=== PATIENT | male | born 2000 | race Caucasian/White ===

== ENCOUNTER 2019-05-10 20:45 | Observation (INO) | payer MEDICAID ==
[2019-05-10] MEDS ORDERED: cefTRIAXone 1 GM in Premix Bag 1 BAG IV ONE (21:34)
[2019-05-10] MEDS ORDERED: Sodium Chloride 0.9% 1,000 ML IV ONE (21:34)
[2019-05-10] MEDS ORDERED: Ondansetron 4 MG/2 ML SDV IVPUSH ONE (21:34)
[2019-05-10 23:00] LABS: BLOOD UREA NITROGEN,BUN 8 mg/dL (7.0-18.0); CARBON DIOXIDE,CO2 24.7 mmol/L (21.0-32.0); CHLORIDE,CL 98 mmol/L (98-107); GLUCOSE RANDOM 143 mg/dL (74-106); POTASSIUM,K 3.6 mmol/L (3.5-5.1); SODIUM,NA 137 mmol/L (136-148)
[2019-05-10] MEDS ORDERED: Levofloxacin/Dextrose 5%-Water 750 MG in Premix Bag 1 BAG IV ONE (23:41)
--- NOTE | 2019-05-10 23:46 | EDM.PDOC ---
ED HPI GENERAL MEDICAL PROBLEM - General Chief Complaint: ENT Problem Stated Complaint: FEVER, RASHA AND THROWING UP Time Seen by Provider: 05/10/19 23:42 Source of Information: Reports: Patient - History of Present Illness INITIAL COMMENTS - FREE TEXT/NARRATIVE: HISTORY AND PHYSICAL: History of present illness: Patient presents with sore throat vomiting and history of rash Originally seen in [place] was treated for scabies and provided an antibiotic "" he believes Z-Jason which she'll the first 2 days of been discontinued on his own as gave him stomach upset Tonight he began vomiting up to 20 times which has prompted his visit here he is had no nausea or vomiting however patient is quite ill-appearing however nontoxic No fever nausea vomiting chills sweats complains of general malaise Review of systems: As per history of present illness and below otherwise all systems reviewed and negative. Past medical history: As per history of present illness and as reviewed below otherwise noncontributory. Surgical history: As per history of present illness and as reviewed below otherwise noncontributory. Social history: No reported history of drug or alcohol abuse. Family history: As per history of present illness and as reviewed below otherwise noncontributory. Physical exam: HEENT: Atraumatic, normocephalic, pupils reactive, negative for conjunctival pallor or scleral icterus, mucous membranes moist, throat clear, neck supple, nontender, trachea midline. Moderate erythema Lungs: Clear to auscultation, breath sounds equal bilaterally, chest nontender. Heart: S1S2, regular, negative for clicks, rubs, or JVD. Abdomen: Soft, nondistended, nontender. Negative for masses or hepatosplenomegaly. Negative for costovertebral tenderness. Pelvis: Stable nontender. Genitourinary: Deferred. Rectal: Deferred. Extremities: Atraumatic, negative for cords or calf pain. Neurovascular unremarkable. Neuro: Awake, alert, oriented. Cranial nerves II through XII unremarkable. Cerebellum unremarkable. Motor and sensory unremarkable throughout. Exam nonfocal. Diagnostics: [CBC CMP UA lactic acid blood cultures 2 ]Rapid strep Levaquin 750 IV Therapeutics: [Renal saline Rocephin ] Impression: [ UTI Pharyngitis Rule out sepsis ] Definitive disposition and diagnosis as appropriate pending reevaluation and review of above. Throat Pain Score (Numeric/FACES): 5 - Related Data Allergies Allergy/AdvReac Type Severity Reaction Status Date / Time Penicillins Allergy Rash Verified 05/10/19 22:16 Home Meds: Home Meds . [No Known Home Meds] 05/10/19 [History] Past Medical History - Infectious Disease History Infectious Disease History: Reports: None - Past Surgical History HEENT Surgical History: Reports: Tonsillectomy Social & Family History - Family History Family Medical History: Noncontributory - Tobacco Use Smoking Status *Q: Light Tobacco Smoker Years of Tobacco use: 1 Packs/Tins Daily: 0.2 - Caffeine Use Caffeine Use: Reports: Coffee - Recreational Drug Use Recreational Drug Use: No ED ROS GENERAL - Review of Systems Review Of Systems: See Below ED EXAM, GENERAL - Physical Exam Exam: See Below Course - Vital Signs Last Recorded V/S: Last Vital Signs Temp 98.6 F 05/10/19 23:31 Pulse 122 H 05/10/19 23:31 Resp 20 05/10/19 23:31 BP 117/61 05/10/19 23:31 Pulse Ox 100 05/10/19 23:31 - Orders/Labs/Meds Orders: Active Orders 24 hr Category Date Time Status EKG Documentation Completion [RC] STAT Care 05/10/19 22:41 Active CULTURE BLOOD [BC] Stat Lab 05/10/19 23:23 Received CULTURE BLOOD [] Stat Lab 05/10/19 23:35 Received CULTURE STREP A CONFIRMATION [] Stat Lab 05/10/19 21:12 Results CULTURE URINE [] Stat Lab 05/10/19 22:20 Received STREP SCRN A RAPID W CULT CONF [] Stat Lab 05/10/19 21:12 Results Levofloxacin/Dextrose 5%-Water [Levaquin in D5W 750 MG/ Med 05/10/19 23:41 Ordered 150 ML] 750 mg Premix Bag 1 bag IV ONETIME Sodium Chloride 0.9% [Normal Saline] 1,000 ml Med 05/10/19 23:45 Ordered IV STAT Blood Culture x2 Reflex Set [OM.PC] Stat Oth 05/10/19 23:13 Ordered Medication Orders Sodium Chloride (Normal Saline) 1,000 mls @ 125 mls/hr IV STAT FLORENCIA Levofloxacin/Dextrose 750 mg/ (Premix) 150 mls @ 100 mls/hr IV ONETIME ONE Stop: 05/11/19 01:10 Labs: Laboratory Tests 05/10/19 05/10/19 05/10/19 Range/Units 22:20 22:20 22:25 WBC 26.79 H (4.0-11.0) K/uL RBC 5.42 (4.50-5.90) M/uL Hgb 14.2 (13.0-17.0) g/dL Hct 42.9 (38.0-50.0) % MCV 79.2 L (80.0-98.0) fL MCH 26.2 L (27.0-32.0) pg MCHC 33.1 (31.0-37.0) g/dL RDW Std Deviation 40.0 (28.0-62.0) fl RDW Coeff of Robin 14 (11.0-15.0) % Plt Count 312 (150-400) K/uL MPV 9.10 (7.40-12.00) fL Add Manual Diff YES Neutrophils % (Manual) 58 (48.0-80.0) % Band Neutrophils % 20 % Lymphocytes % (Manual) 21 (16.0-40.0) % Monocytes % (Manual) 1 (0.0-15.0) % Nucleated RBC % 0.0 /100WBC Absolute Seg Neuts 15.5 H (1.4-5.7) Band Neutrophils # 5.4 Lymphocytes # (Manual) 5.6 H (0.6-2.4) Monocytes # (Manual) 0.3 (0.0-0.8) Nucleated RBCs # 0 K/uL Lactate (0.20-2.00) mmol/L Sodium (136-148) mmol/L Potassium (3.5-5.1) mmol/L Chloride (98-107) mmol/L Carbon Dioxide (21.0-32.0) mmol/L BUN (7.0-18.0) mg/dL Creatinine (0.8-1.3) mg/dL Est Cr Clr Drug Dosing mL/min Estimated GFR (MDRD) ml/min Glucose (74-106) mg/dL Calcium (8.5-10.1) mg/dL Total Bilirubin (0.2-1.0) mg/dL AST (15-37) IU/L ALT (14-63) IU/L Alkaline Phosphatase (46-116) U/L Creatine Kinase (26-308) U/L Total Protein (6.4-8.2) g/dL Albumin (3.4-5.0) g/dL Globulin (2.6-4.0) g/dL Albumin/Globulin Ratio (0.9-1.6) Urine Color YELLOW Urine Appearance CLOUDY Urine pH 6.0 (5.0-8.0) Ur Specific Merrill >= 1.030 (1.001-1.035) Urine Protein 100 H (NEGATIVE) mg/dL Urine Glucose (UA) NEGATIVE (NEGATIVE) mg/dL Urine Ketones 15 H (NEGATIVE) mg/dL Urine Occult Blood NEGATIVE (NEGATIVE) Urine Nitrite POSITIVE H (NEGATIVE) Urine Bilirubin MODERATE H (NEGATIVE) Urine Ictotest NEGATIVE Urine Urobilinogen 1.0 (<2.0) EU/dL Ur Leukocyte Esterase NEGATIVE (NEGATIVE) Urine RBC 0-2 (0-2/HPF) Urine WBC 2-4 (0-5/HPF) Ur Epithelial Cells OCCASIONAL (NONE-FEW) Urine Bacteria 1+ H (NEGATIVE) Urine Mucus MODERATE (NONE-MOD) Urine Opiates Screen NEGATIVE (NEGATIVE) Ur Oxycodone Screen NEGATIVE (NEGATIVE) Urine Methadone Screen NEGATIVE (NEGATIVE) Ur Barbiturates Screen NEGATIVE (NEGATIVE) Ur Phencyclidine Scrn NEGATIVE (NEGATIVE) Ur Amphetamine Screen NEGATIVE (NEGATIVE) U Methamphetamines Scrn NEGATIVE (NEGATIVE) U Benzodiazepines Scrn NEGATIVE (NEGATIVE) U Cocaine Metab Screen NEGATIVE (NEGATIVE) U Marijuana (THC) Screen NEGATIVE (NEGATIVE) 05/10/19 05/10/19 05/10/19 Range/Units 22:25 22:25 23:23 WBC (4.0-11.0) K/uL RBC (4.50-5.90) M/uL Hgb (13.0-17.0) g/dL Hct (38.0-50.0) % MCV (80.0-98.0) fL MCH (27.0-32.0) pg MCHC (31.0-37.0) g/dL RDW Std Deviation (28.0-62.0) fl RDW Coeff of Robin (11.0-15.0) % Plt Count (150-400) K/uL MPV (7.40-12.00) fL Add Manual Diff Neutrophils % (Manual) (48.0-80.0) % Band Neutrophils % % Lymphocytes % (Manual) (16.0-40.0) % Monocytes % (Manual) (0.0-15.0) % Nucleated RBC % /100WBC Absolute Seg Neuts (1.4-5.7) Band Neutrophils # Lymphocytes # (Manual) (0.6-2.4) Monocytes # (Manual) (0.0-0.8) Nucleated RBCs # K/uL Lactate 1.6 (0.20-2.00) mmol/L Sodium 137 (136-148) mmol/L Potassium 3.6 (3.5-5.1) mmol/L Chloride 98 (98-107) mmol/L Carbon Dioxide 24.7 (21.0-32.0) mmol/L BUN 8 (7.0-18.0) mg/dL Creatinine 1.4 H (0.8-1.3) mg/dL Est Cr Clr Drug Dosing 89.64 mL/min Estimated GFR (MDRD) > 60.0 ml/min Glucose 143 H (74-106) mg/dL Calcium 8.6 (8.5-10.1) mg/dL Total Bilirubin 0.8 (0.2-1.0) mg/dL AST 11 L (15-37) IU/L ALT 22 (14-63) IU/L Alkaline Phosphatase 65 (46-116) U/L Creatine Kinase 63 (26-308) U/L Total Protein 7.3 (6.4-8.2) g/dL Albumin 3.3 L (3.4-5.0) g/dL Globulin 4.0 (2.6-4.0) g/dL Albumin/Globulin Ratio 0.8 L (0.9-1.6) Urine Color Urine Appearance Urine pH (5.0-8.0) Ur Specific Merrill (1.001-1.035) Urine Protein (NEGATIVE) mg/dL Urine Glucose (UA) (NEGATIVE) mg/dL Urine Ketones (NEGATIVE) mg/dL Urine Occult Blood (NEGATIVE) Urine Nitrite (NEGATIVE) Urine Bilirubin (NEGATIVE) Urine Ictotest Urine Urobilinogen (<2.0) EU/dL Ur Leukocyte Esterase (NEGATIVE) Urine RBC (0-2/HPF) Urine WBC (0-5/HPF) Ur Epithelial Cells (NONE-FEW) Urine Bacteria (NEGATIVE) Urine Mucus (NONE-MOD) Urine Opiates Screen (NEGATIVE) Ur Oxycodone Screen (NEGATIVE) Urine Methadone Screen (NEGATIVE) Ur Barbiturates Screen (NEGATIVE) Ur Phencyclidine Scrn (NEGATIVE) Ur Amphetamine Screen (NEGATIVE) U Methamphetamines Scrn (NEGATIVE) U Benzodiazepines Scrn (NEGATIVE) U Cocaine Metab Screen (NEGATIVE) U Marijuana (THC) Screen (NEGATIVE) Meds: Medications Generic Name Dose Route Start Last Admin Trade Name Freq PRN Reason Stop Dose Admin Sodium Chloride 1,000 mls @ 125 mls/hr 05/10/19 23:45 Normal Saline IV STAT FLORENCIA Levofloxacin/Dextrose 750 mg/ 150 mls @ 100 mls/hr 05/10/19 23:41 Premix IV 05/11/19 01:10 ONETIME ONE Discontinued Medications Generic Name Dose Route Start Last Admin Trade Name Freq PRN Reason Stop Dose Admin Ceftriaxone Sodium/Dextrose 1 50 mls @ 100 mls/hr 05/10/19 21:34 05/10/19 22: 27 gm/ Premix IV 05/10/19 22:03 100 mls/hr ONETIME ONE Administration Sodium Chloride 1,000 mls @ 999 mls/hr 05/10/19 21:34 05/10/19 22:25 Normal Saline IV 05/10/19 22:34 999 mls/hr STAT ONE Administration Ondansetron HCl 8 mg 05/10/19 21:34 05/10/19 22:25 Zofran IVPUSH 05/10/19 21:35 8 mg ONETIME ONE Administration Departure - Departure Time of Disposition: 23:45 Disposition: Refer to Observation Condition: Fair Clinical Impression: UTI (urinary tract infection) - Discharge Information Referrals: PCP,None [Primary Care Provider] - - My Orders Last 24 Hours: My Active Orders 05/10/19 21:12 CULTURE STREP A CONFIRMATION [RM] Stat STREP SCRN A RAPID W CULT CONF [RM] Stat 05/10/19 22:20 CULTURE URINE [RM] Stat 05/10/19 22:41 EKG Documentation Completion [RC] STAT 05/10/19 23:13 Blood Culture x2 Reflex Set [OM.PC] Stat 05/10/19 23:23 CULTURE BLOOD [BC] Stat 05/10/19 23:35 CULTURE BLOOD [BC] Stat 05/10/19 23:41 Levofloxacin/Dextrose 5%-Water [Levaquin in D5W 750 MG/150 ML] 750 mg Premix Bag 1 bag IV ONETIME 05/10/19 23:45 Sodium Chloride 0.9% [Normal Saline] 1,000 ml IV STAT - Assessment/Plan Last 24 Hours: My Active Orders 05/10/19 21:12 CULTURE STREP A CONFIRMATION [RM] Stat STREP SCRN A RAPID W CULT CONF [RM] Stat 05/10/19 22:20 CULTURE URINE [RM] Stat 05/10/19 22:41 EKG Documentation Completion [RC] STAT 05/10/19 23:13 Blood Culture x2 Reflex Set [OM.PC] Stat 05/10/19 23:23 CULTURE BLOOD [BC] Stat 05/10/19 23:35 CULTURE BLOOD [BC] Stat 05/10/19 23:41 Levofloxacin/Dextrose 5%-Water [Levaquin in D5W 750 MG/150 ML] 750 mg Premix Bag 1 bag IV ONETIME 05/10/19 23:45 Sodium Chloride 0.9% [Normal Saline] 1,000 ml IV STAT
[2019-05-10] MEDS: Sodium Chloride 0.9% 1,000 ML IV SCH (23:59)
[2019-05-11] MEDS ORDERED: Ondansetron 4 MG/2 ML SDV IVPUSH PRN (00:55)
[2019-05-11] MEDS ORDERED: Acetaminophen 325 MG Tab PO PRN (00:56)
--- NOTE | 2019-05-11 07:14 | PCM.HP.2 ---
H&P History of Present Illness - General Date of Service: 05/11/19 Admit Problem/Dx: Admission Diagnosis/Problem Admission Diagnosis/Problem UTI, Urinary tract infectious disease Source of Information: Patient History Limitations: Reports: No Limitations - History of Present Illness Initial Comments - Free Text/Narative: The patient is a 18-year-old gentleman who had presented to the emergency department complaining of fever, rash and vomiting. The patient had been evaluated at a clinic in [place] for his rash and had been treated for scabies. The patient also had been given a Z-Jason although he said he did not take any of the medications. The patient had been vomiting up to 20 times. He also has some generalized abdominal pain. The patient says that he had been vomiting blood as well. The patient has denied any alcohol use or NSAID use. The patient also has denied any melena or dark stools. He has had no specific aggravating or relieving factors. Patient says that he does feel better today. The patient also had been noted to have positive nitrites in his urine with +1 bacteria. The patient had denied any urinary symptoms. Also, the patient says that his rash that he had visited a physician for [place] has disappeared. This had been predominantly around his torso. Onset of Symptoms: Reports: Gradual Duration of Symptoms: Reports: Day(s): Location: Reports: Abdomen Quality: Reports: Ache, Stabbing Severity: Moderate Improves with: Reports: None Worsens with: Reports: None Associated Symptoms: Reports: Nausea/Vomiting Throat Pain Score (Numeric/FACES): 5 - Related Data Allergies/Adverse Reactions: Allergies Allergy/AdvReac Type Severity Reaction Status Date / Time codeine Allergy Hives Verified 05/11/19 09:02 Penicillins Allergy Hives Verified 05/11/19 09:02 Home Medications: Home Meds . [No Known Home Meds] 05/10/19 [History] Past Medical History HEENT History: Reports: None Cardiovascular History: Reports: None Respiratory History: Reports: None Gastrointestinal History: Reports: Gastritis, GI Bleed Genitourinary History: Reports: None Musculoskeletal History: Reports: None Neurological History: Reports: None Psychiatric History: Reports: None Endocrine/Metabolic History: Reports: None Hematologic History: Reports: None Immunologic History: Reports: None Oncologic (Cancer) History: Reports: None - Infectious Disease History Infectious Disease History: Reports: None - Past Surgical History HEENT Surgical History: Reports: Tonsillectomy Social & Family History - Family History Family Medical History: Noncontributory - Tobacco Use Smoking Status *Q: Current Some Day Smoker Years of Tobacco use: 1 Packs/Tins Daily: 1.5 - Caffeine Use Caffeine Use: Reports: Coffee, Soda - Recreational Drug Use Recreational Drug Use: No - Living Situation & Occupation Living situation: Reports: with Family Occupation: Employed H&P Review of Systems - Review of Systems: Review Of Systems: See Below General: Reports: No Symptoms HEENT: Reports: No Symptoms Pulmonary: Reports: No Symptoms Cardiovascular: Reports: No Symptoms Gastrointestinal: Reports: Abdominal Pain, Hematemesis, Nausea. Denies: Black Stool, Bloody Stool, Melena Genitourinary: Reports: No Symptoms Musculoskeletal: Reports: No Symptoms Skin: Reports: No Symptoms Psychiatric: Reports: No Symptoms Neurological: Reports: No Symptoms Hematologic/Lymphatic: Reports: No Symptoms Immunologic: Reports: No Symptoms Exam - Exam Exam: See Below - Vital Signs Vital Signs: Last Vital Signs Temp 37.2 C 05/11/19 04:00 Pulse 122 H 05/11/19 04:00 Resp 17 05/11/19 04:00 BP 121/56 L 05/11/19 04:00 Pulse Ox 100 05/11/19 04:00 Weight: 95.617 kg - Exam Quality Assessment: No: Supplemental Oxygen General: Alert, Oriented, Cooperative, Mild Distress HEENT: Conjunctiva Clear, EACs Clear, EOMI, Mucosa Moist & [place], PERRLA. No: Scleral Icterus Neck: Supple, Trachea Midline Lungs: Clear to Auscultation, Normal Respiratory Effort Cardiovascular: Regular Rate, Regular Rhythm GI/Abdominal Exam: Normal Bowel Sounds, Soft, Non-Tender, No Distention. No: Guarding, Rigid, Rebound Back Exam: Normal Inspection, Full Range of Motion Extremities: Normal Inspection, No Pedal Edema Skin: Warm, Dry, Intact Neuro Extensive - Mental Status: Alert, Oriented x3 Neuro Extensive - Motor, Sensory, Reflexes: CN II-XII Intact, Normal Gait Psychiatric: Alert, Normal Affect, Normal Mood - Patient Data Lab Results Last 24 hrs: Laboratory Results - last 24 hr 05/10/19 05/10/19 05/10/19 Range/Units 22:20 22:20 22:25 WBC 26.79 H (4.0-11.0) K/uL RBC 5.42 (4.50-5.90) M/uL Hgb 14.2 (13.0-17.0) g/dL Hct 42.9 (38.0-50.0) % MCV 79.2 L (80.0-98.0) fL MCH 26.2 L (27.0-32.0) pg MCHC 33.1 (31.0-37.0) g/dL RDW Std Deviation 40.0 (28.0-62.0) fl RDW Coeff of Robin 14 (11.0-15.0) % Plt Count 312 (150-400) K/uL MPV 9.10 (7.40-12.00) fL Neut % (Auto) (48.0-80.0) % Lymph % (Auto) (16.0-40.0) % Barton % (Auto) (0.0-15.0) % Eos % (Auto) (0.0-7.0) % Baso % (Auto) (0.0-1.5) % Neut # (Auto) (1.4-5.7) K/uL Lymph # (Auto) (0.6-2.4) K/uL Barton # (Auto) (0.0-0.8) K/uL Eos # (Auto) (0.0-0.7) K/uL Baso # (Auto) (0.0-0.1) K/uL Add Manual Diff YES Neutrophils % (Manual) 58 (48.0-80.0) % Band Neutrophils % 20 % Lymphocytes % (Manual) 21 (16.0-40.0) % Monocytes % (Manual) 1 (0.0-15.0) % Nucleated RBC % 0.0 /100WBC Absolute Seg Neuts 15.5 H (1.4-5.7) Band Neutrophils # 5.4 Lymphocytes # (Manual) 5.6 H (0.6-2.4) Monocytes # (Manual) 0.3 (0.0-0.8) Nucleated RBCs # 0 K/uL Lactate (0.20-2.00) mmol/L Sodium (136-148) mmol/L Potassium (3.5-5.1) mmol/L Chloride (98-107) mmol/L Carbon Dioxide (21.0-32.0) mmol/L BUN (7.0-18.0) mg/dL Creatinine (0.8-1.3) mg/dL Est Cr Clr Drug Dosing mL/min Estimated GFR (MDRD) ml/min Glucose (74-106) mg/dL Calcium (8.5-10.1) mg/dL Total Bilirubin (0.2-1.0) mg/dL AST (15-37) IU/L ALT (14-63) IU/L Alkaline Phosphatase (46-116) U/L Creatine Kinase (26-308) U/L Total Protein (6.4-8.2) g/dL Albumin (3.4-5.0) g/dL Globulin (2.6-4.0) g/dL Albumin/Globulin Ratio (0.9-1.6) Urine Color YELLOW Urine Appearance CLOUDY Urine pH 6.0 (5.0-8.0) Ur Specific Hurricane >= 1.030 (1.001-1.035) Urine Protein 100 H (NEGATIVE) mg/dL Urine Glucose (UA) NEGATIVE (NEGATIVE) mg/dL Urine Ketones 15 H (NEGATIVE) mg/dL Urine Occult Blood NEGATIVE (NEGATIVE) Urine Nitrite POSITIVE H (NEGATIVE) Urine Bilirubin MODERATE H (NEGATIVE) Urine Ictotest NEGATIVE Urine Urobilinogen 1.0 (<2.0) EU/dL Ur Leukocyte Esterase NEGATIVE (NEGATIVE) Urine RBC 0-2 (0-2/HPF) Urine WBC 2-4 (0-5/HPF) Ur Epithelial Cells OCCASIONAL (NONE-FEW) Urine Bacteria 1+ H (NEGATIVE) Urine Mucus MODERATE (NONE-MOD) Urine Opiates Screen NEGATIVE (NEGATIVE) Ur Oxycodone Screen NEGATIVE (NEGATIVE) Urine Methadone Screen NEGATIVE (NEGATIVE) Ur Barbiturates Screen NEGATIVE (NEGATIVE) Ur Phencyclidine Scrn NEGATIVE (NEGATIVE) Ur Amphetamine Screen NEGATIVE (NEGATIVE) U Methamphetamines Scrn NEGATIVE (NEGATIVE) U Benzodiazepines Scrn NEGATIVE (NEGATIVE) U Cocaine Metab Screen NEGATIVE (NEGATIVE) U Marijuana (THC) Screen NEGATIVE (NEGATIVE) 05/10/19 05/10/19 05/10/19 Range/Units 22:25 22:25 23:23 WBC (4.0-11.0) K/uL RBC (4.50-5.90) M/uL Hgb (13.0-17.0) g/dL Hct (38.0-50.0) % MCV (80.0-98.0) fL MCH (27.0-32.0) pg MCHC (31.0-37.0) g/dL RDW Std Deviation (28.0-62.0) fl RDW Coeff of Robin (11.0-15.0) % Plt Count (150-400) K/uL MPV (7.40-12.00) fL Neut % (Auto) (48.0-80.0) % Lymph % (Auto) (16.0-40.0) % Barton % (Auto) (0.0-15.0) % Eos % (Auto) (0.0-7.0) % Baso % (Auto) (0.0-1.5) % Neut # (Auto) (1.4-5.7) K/uL Lymph # (Auto) (0.6-2.4) K/uL Barton # (Auto) (0.0-0.8) K/uL Eos # (Auto) (0.0-0.7) K/uL Baso # (Auto) (0.0-0.1) K/uL Add Manual Diff Neutrophils % (Manual) (48.0-80.0) % Band Neutrophils % % Lymphocytes % (Manual) (16.0-40.0) % Monocytes % (Manual) (0.0-15.0) % Nucleated RBC % /100WBC Absolute Seg Neuts (1.4-5.7) Band Neutrophils # Lymphocytes # (Manual) (0.6-2.4) Monocytes # (Manual) (0.0-0.8) Nucleated RBCs # K/uL Lactate 1.6 (0.20-2.00) mmol/L Sodium 137 (136-148) mmol/L Potassium 3.6 (3.5-5.1) mmol/L Chloride 98 (98-107) mmol/L Carbon Dioxide 24.7 (21.0-32.0) mmol/L BUN 8 (7.0-18.0) mg/dL Creatinine 1.4 H (0.8-1.3) mg/dL Est Cr Clr Drug Dosing 89.64 mL/min Estimated GFR (MDRD) > 60.0 ml/min Glucose 143 H (74-106) mg/dL Calcium 8.6 (8.5-10.1) mg/dL Total Bilirubin 0.8 (0.2-1.0) mg/dL AST 11 L (15-37) IU/L ALT 22 (14-63) IU/L Alkaline Phosphatase 65 (46-116) U/L Creatine Kinase 63 (26-308) U/L Total Protein 7.3 (6.4-8.2) g/dL Albumin 3.3 L (3.4-5.0) g/dL Globulin 4.0 (2.6-4.0) g/dL Albumin/Globulin Ratio 0.8 L (0.9-1.6) Urine Color Urine Appearance Urine pH (5.0-8.0) Ur Specific Hurricane (1.001-1.035) Urine Protein (NEGATIVE) mg/dL Urine Glucose (UA) (NEGATIVE) mg/dL Urine Ketones (NEGATIVE) mg/dL Urine Occult Blood (NEGATIVE) Urine Nitrite (NEGATIVE) Urine Bilirubin (NEGATIVE) Urine Ictotest Urine Urobilinogen (<2.0) EU/dL Ur Leukocyte Esterase (NEGATIVE) Urine RBC (0-2/HPF) Urine WBC (0-5/HPF) Ur Epithelial Cells (NONE-FEW) Urine Bacteria (NEGATIVE) Urine Mucus (NONE-MOD) Urine Opiates Screen (NEGATIVE) Ur Oxycodone Screen (NEGATIVE) Urine Methadone Screen (NEGATIVE) Ur Barbiturates Screen (NEGATIVE) Ur Phencyclidine Scrn (NEGATIVE) Ur Amphetamine Screen (NEGATIVE) U Methamphetamines Scrn (NEGATIVE) U Benzodiazepines Scrn (NEGATIVE) U Cocaine Metab Screen (NEGATIVE) U Marijuana (THC) Screen (NEGATIVE) 05/11/19 05/11/19 Range/Units 06:43 06:43 WBC 15.47 H (4.0-11.0) K/uL RBC 4.40 L (4.50-5.90) M/uL Hgb 11.4 L (13.0-17.0) g/dL Hct 34.9 L (38.0-50.0) % MCV 79.3 L (80.0-98.0) fL MCH 25.9 L (27.0-32.0) pg MCHC 32.7 (31.0-37.0) g/dL RDW Std Deviation 40.2 (28.0-62.0) fl RDW Coeff of Robin 14 (11.0-15.0) % Plt Count 230 (150-400) K/uL MPV 9.10 (7.40-12.00) fL Neut % (Auto) 71.7 (48.0-80.0) % Lymph % (Auto) 23.1 (16.0-40.0) % Barton % (Auto) 3.1 (0.0-15.0) % Eos % (Auto) 2.0 (0.0-7.0) % Baso % (Auto) 0.1 (0.0-1.5) % Neut # (Auto) 11.1 H (1.4-5.7) K/uL Lymph # (Auto) 3.6 H (0.6-2.4) K/uL Barton # (Auto) 0.5 (0.0-0.8) K/uL Eos # (Auto) 0.3 (0.0-0.7) K/uL Baso # (Auto) 0.0 (0.0-0.1) K/uL Add Manual Diff Neutrophils % (Manual) (48.0-80.0) % Band Neutrophils % % Lymphocytes % (Manual) (16.0-40.0) % Monocytes % (Manual) (0.0-15.0) % Nucleated RBC % 0.0 /100WBC Absolute Seg Neuts (1.4-5.7) Band Neutrophils # Lymphocytes # (Manual) (0.6-2.4) Monocytes # (Manual) (0.0-0.8) Nucleated RBCs # 0 K/uL Lactate 1.0 (0.20-2.00) mmol/L Sodium (136-148) mmol/L Potassium (3.5-5.1) mmol/L Chloride (98-107) mmol/L Carbon Dioxide (21.0-32.0) mmol/L BUN (7.0-18.0) mg/dL Creatinine (0.8-1.3) mg/dL Est Cr Clr Drug Dosing mL/min Estimated GFR (MDRD) ml/min Glucose (74-106) mg/dL Calcium (8.5-10.1) mg/dL Total Bilirubin (0.2-1.0) mg/dL AST (15-37) IU/L ALT (14-63) IU/L Alkaline Phosphatase (46-116) U/L Creatine Kinase (26-308) U/L Total Protein (6.4-8.2) g/dL Albumin (3.4-5.0) g/dL Globulin (2.6-4.0) g/dL Albumin/Globulin Ratio (0.9-1.6) Urine Color Urine Appearance Urine pH (5.0-8.0) Ur Specific Hurricane (1.001-1.035) Urine Protein (NEGATIVE) mg/dL Urine Glucose (UA) (NEGATIVE) mg/dL Urine Ketones (NEGATIVE) mg/dL Urine Occult Blood (NEGATIVE) Urine Nitrite (NEGATIVE) Urine Bilirubin (NEGATIVE) Urine Ictotest Urine Urobilinogen (<2.0) EU/dL Ur Leukocyte Esterase (NEGATIVE) Urine RBC (0-2/HPF) Urine WBC (0-5/HPF) Ur Epithelial Cells (NONE-FEW) Urine Bacteria (NEGATIVE) Urine Mucus (NONE-MOD) Urine Opiates Screen (NEGATIVE) Ur Oxycodone Screen (NEGATIVE) Urine Methadone Screen (NEGATIVE) Ur Barbiturates Screen (NEGATIVE) Ur Phencyclidine Scrn (NEGATIVE) Ur Amphetamine Screen (NEGATIVE) U Methamphetamines Scrn (NEGATIVE) U Benzodiazepines Scrn (NEGATIVE) U Cocaine Metab Screen (NEGATIVE) U Marijuana (THC) Screen (NEGATIVE) Result Diagrams: 05/11/19 06:43 05/11/19 06:43 Frank Results Last 24 hrs: Microbiology 05/10/19 21:12 Group A Streptococcus Rapid Screen - Final Throat NEGATIVE STREP A SCREEN REFERENCE RANGE: NEGATIVE - Problem List (1) Hematemesis SNOMED Code(s): 5151831 ICD Code: K92.0 - HEMATEMESIS Status: Acute Priority: High Current Visit: Yes Qualifiers: Nausea presence: with nausea Qualified Code(s): K92.0 - Hematemesis (2) Aileen-Silveira tear SNOMED Code(s): 845662760 ICD Code: K22.6 - GASTRO-ESOPHAGEAL LACERATION-HEMORRHAGE SYNDROME Status: Acute Priority: High Current Visit: Yes (3) Intractable nausea and vomiting SNOMED Code(s): 821245400 ICD Code: R11.2 - NAUSEA WITH VOMITING, UNSPECIFIED Status: Acute Priority: High Current Visit: Yes Qualifiers: Vomiting type: unspecified Qualified Code(s): R11.2 - Nausea with vomiting , unspecified (4) Dehydration SNOMED Code(s): 10380057 ICD Code: E86.0 - DEHYDRATION Status: Acute Priority: High Current Visit: Yes (5) Tachycardia SNOMED Code(s): 8041443 ICD Code: R00.0 - TACHYCARDIA, UNSPECIFIED Status: Acute Priority: High Current Visit: Yes Problem List Initiated/Reviewed/Updated: Yes Orders Last 24hrs: Active Orders 24 hr Category Date Time Status Admission Status [Patient Status] [ADT] Routine ADT 05/11/19 00:11 Active EKG Documentation Completion [RC] STAT Care 05/10/19 22:41 Active Regular Diet [DIET] Diet 05/11/19 Breakfast Active CMP [COMPREHENSIVE METABOLIC PN,CMP] [CHEM] Routine Lab 05/11/19 06:43 Received CULTURE BLOOD [BC] Stat Lab 05/10/19 23:23 Received CULTURE BLOOD [BC] Stat Lab 05/10/19 23:35 Received CULTURE STREP A CONFIRMATION [RM] Stat Lab 05/10/19 21:12 Results CULTURE URINE [RM] Stat Lab 05/10/19 22:20 Received STREP SCRN A RAPID W CULT CONF [RM] Stat Lab 05/10/19 21:12 Results Acetaminophen [Tylenol] Med 05/11/19 00:56 Active 650 mg PO Q4H PRN Ondansetron [Zofran] Med 05/11/19 00:55 Active 4 mg IVPUSH Q4H PRN Sodium Chloride 0.9% [Normal Saline] 1,000 ml Med 05/11/19 07:00 Active IV ASDIRECTED Sodium Chloride 0.9% [Normal Saline] 1,000 ml Med 05/10/19 23:45 Active IV STAT cefTRIAXone [Rocephin in Dextrose,Iso-Osm 1 GM/50 ML] 1 Med 05/11/19 21:00 Active gm Premix Bag 1 bag IV Q24H Blood Culture x2 Reflex Set [OM.PC] Stat Oth 05/10/19 23:13 Ordered Medication Orders Acetaminophen (Tylenol) 650 mg PO Q4H PRN PRN Reason: Pain/Fever Sodium Chloride (Normal Saline) 1,000 mls @ 125 mls/hr IV STAT FLORENCIA Last Admin: 05/10/19 23:59 Dose: 125 mls/hr Ceftriaxone Sodium/Dextrose 1 (gm/ Premix) 50 mls @ 100 mls/hr IV Q24H FLORENCIA Sodium Chloride (Normal Saline) 1,000 mls @ 125 mls/hr IV ASDIRECTED FLORENCIA Ondansetron HCl (Zofran) 4 mg IVPUSH Q4H PRN PRN Reason: Nausea/Vomiting Assessment/Plan Comment:: The patient is a 18-year-old gentleman who had been admitted initially secondary to urinary tract infection. I suspect that his urine was abnormal due to his dehydration from multiple episodes of intractable vomiting. I am concerned about the patient reporting blood in his vomitus and this may be indicative of a Aileen-Silveira tear. As a result of this I have consult Dr. Feldman for possible EGD evaluation. The patient has experienced a 3 g drop in his hemoglobin with hydration. It's unclear at this time what caused the initial nausea and vomiting. Repeat laboratory studies have been ordered. The patient initially had been ordered to have Lovenox however this was discontinued. The patient has been encouraged to ambulate. Patient's nausea vomiting will be controlled with the use of Zofran. Repeat laboratory studies have been ordered to follow his hemoglobin. The patient has improved somewhat since last night. After EGD patient should be appropriate for discharge. - Mortality Measure Prognosis:: Good
[2019-05-11 07:18] LABS: BLOOD UREA NITROGEN,BUN 8 mg/dL (7.0-18.0); CARBON DIOXIDE,CO2 24.7 mmol/L (21.0-32.0); CHLORIDE,CL 101 mmol/L (98-107); GLUCOSE RANDOM 111 mg/dL (74-106); SODIUM,NA 137 mmol/L (136-148)
[2019-05-11] MEDS: Sodium Chloride 0.9% 1,000 ML IV SCH ×3 (07:19→22:20)
[2019-05-11] MEDS ORDERED: oxyCODONE 5 MG Tab PO PRN (07:22)
[2019-05-11] MEDS ORDERED: Ondansetron 4 MG Tab.DIS PO PRN (07:22)
[2019-05-11] MEDS ORDERED: Enoxaparin 40 MG/0.4 ML Syringe SUBCUT SCH (08:00)
[2019-05-11] MEDS: Pantoprazole 40 MG in Sodium Chloride 0.9% 10 ML IV SCH (10:02)
--- NOTE | 2019-05-11 12:19 | PCM.CONS ---
H&P History of Present Illness - General Date of Service: 05/11/19 Admit Problem/Dx: Admission Diagnosis/Problem Admission Diagnosis/Problem Nausea, vomiting, hematemesis, anemia Source of Information: Patient History Limitations: Reports: No Limitations - History of Present Illness Initial Comments - Free Text/Narative: Patient is a 18-year-old gentleman who presented the emergency room yesterday with a several day history of nausea and vomiting. It got worse yesterday to the point that he noticed some blood or coffee ground material in his emesis. He was seen in the emergency room and with a significant leukocytosis thought to perhaps have a urinary tract infection. He was rehydrated and subsequently had a 3 g drop in his hemoglobin. General surgery was consult for consideration for esophagogastroduodenoscopy with biopsy. Onset of Symptoms: Reports: Gradual Duration of Symptoms: Reports: Day(s): Location: Reports: Abdomen Quality: Reports: Burning Severity: Mild Improves with: Reports: Rest Worsens with: Reports: None Context: Reports: Sick Contact Associated Symptoms: Reports: Nausea/Vomiting Throat Pain Score (Numeric/FACES): 5 - Related Data Allergies/Adverse Reactions: Allergies Allergy/AdvReac Type Severity Reaction Status Date / Time codeine Allergy Hives Verified 05/11/19 09:02 Penicillins Allergy Hives Verified 05/11/19 09:02 Home Medications: Home Meds . [No Known Home Meds] 05/10/19 [History] Past Medical History HEENT History: Reports: None Cardiovascular History: Reports: None Respiratory History: Reports: None Gastrointestinal History: Reports: Gastritis, GI Bleed Genitourinary History: Reports: None Musculoskeletal History: Reports: None Neurological History: Reports: None Psychiatric History: Reports: None Endocrine/Metabolic History: Reports: None Hematologic History: Reports: None Immunologic History: Reports: None Oncologic (Cancer) History: Reports: None - Infectious Disease History Infectious Disease History: Reports: None - Past Surgical History HEENT Surgical History: Reports: Tonsillectomy Social & Family History - Family History Family Medical History: Noncontributory - Tobacco Use Smoking Status *Q: Current Some Day Smoker Years of Tobacco use: 1 Packs/Tins Daily: 1.5 - Caffeine Use Caffeine Use: Reports: Coffee, Soda - Recreational Drug Use Recreational Drug Use: No - Living Situation & Occupation Living situation: Reports: with Family Occupation: Employed H&P Review of Systems - Review of Systems: Review Of Systems: See Below General: Reports: Weakness, Fatigue, Decreased Appetite. Denies: Fever, Chills , Malaise, Night Sweats, Diaphoresis, Weight Loss HEENT: Reports: No Symptoms Pulmonary: Denies: Shortness of Breath, Wheezing Cardiovascular: Denies: Chest Pain Gastrointestinal: Reports: Abdominal Pain, Anorexia, Decreased Appetite, Flatus , Hematemesis, Nausea, Vomiting. Denies: Black Stool, Bloody Stool, Constipation, Diarrhea, Distension Genitourinary: Denies: Dysuria, Frequency, Burning, Pain, Urgency Musculoskeletal: Reports: No Symptoms Skin: Denies: Cyanosis, Jaundice Psychiatric: Reports: No Symptoms Neurological: Reports: No Symptoms Hematologic/Lymphatic: Reports: No Symptoms Immunologic: Reports: No Symptoms Exam - Exam Exam: See Below - Vital Signs Vital Signs: Last Vital Signs Temp 99 F 05/11/19 07:22 Pulse 111 H 05/11/19 07:22 Resp 16 05/11/19 07:22 BP 118/48 L 05/11/19 07:22 Pulse Ox 100 05/11/19 07:22 Weight: 210 lb 12.8 oz - Exam General: Alert, Oriented, Cooperative HEENT: Conjunctiva Clear, EACs Clear, Nares Patent, Pupils Equal, Pupils Reactive. No: Scleral Icterus Neck: Supple, Trachea Midline Lungs: Clear to Auscultation, Normal Respiratory Effort Cardiovascular: Regular Rate, Regular Rhythm, Normal S1, Normal S2. No: Tachycardia, Systolic Murmur, Diastolic Murmur GI/Abdominal Exam: Normal Bowel Sounds, Soft, Non-Tender. No: Guarding, Rigid, Rebound (Male) Exam: Deferred Rectal (Males) Exam: Deferred Back Exam: Normal Inspection Extremities: Normal Inspection, Normal Range of Motion Peripheral Pulses: 4+: Posterior Tibial (L), Posterior Tibial (R), Dorsalis Pedis (L), Dorsalis Pedis (R) Skin: Warm, Dry, Intact. No: Rash, Petechia, Ecchymosis, Wound Neurological: Cranial Nerves Intact Psychiatric: Alert, Normal Affect, Normal Mood - Patient Data Lab Results Last 24 hrs: Laboratory Results - last 24 hr 05/10/19 05/10/19 05/10/19 Range/Units 22:20 22:20 22:25 WBC 26.79 H (4.0-11.0) K/uL RBC 5.42 (4.50-5.90) M/uL Hgb 14.2 (13.0-17.0) g/dL Hct 42.9 (38.0-50.0) % MCV 79.2 L (80.0-98.0) fL MCH 26.2 L (27.0-32.0) pg MCHC 33.1 (31.0-37.0) g/dL RDW Std Deviation 40.0 (28.0-62.0) fl RDW Coeff of Robin 14 (11.0-15.0) % Plt Count 312 (150-400) K/uL MPV 9.10 (7.40-12.00) fL Neut % (Auto) (48.0-80.0) % Lymph % (Auto) (16.0-40.0) % [place] % (Auto) (0.0-15.0) % Eos % (Auto) (0.0-7.0) % Baso % (Auto) (0.0-1.5) % Neut # (Auto) (1.4-5.7) K/uL Lymph # (Auto) (0.6-2.4) K/uL [place] # (Auto) (0.0-0.8) K/uL Eos # (Auto) (0.0-0.7) K/uL Baso # (Auto) (0.0-0.1) K/uL Add Manual Diff YES Neutrophils % (Manual) 58 (48.0-80.0) % Band Neutrophils % 20 % Lymphocytes % (Manual) 21 (16.0-40.0) % Monocytes % (Manual) 1 (0.0-15.0) % Nucleated RBC % 0.0 /100WBC Absolute Seg Neuts 15.5 H (1.4-5.7) Band Neutrophils # 5.4 Lymphocytes # (Manual) 5.6 H (0.6-2.4) Monocytes # (Manual) 0.3 (0.0-0.8) Nucleated RBCs # 0 K/uL Lactate (0.20-2.00) mmol/L Sodium (136-148) mmol/L Potassium (3.5-5.1) mmol/L Chloride (98-107) mmol/L Carbon Dioxide (21.0-32.0) mmol/L BUN (7.0-18.0) mg/dL Creatinine (0.8-1.3) mg/dL Est Cr Clr Drug Dosing mL/min Estimated GFR (MDRD) ml/min Glucose (74-106) mg/dL Calcium (8.5-10.1) mg/dL Total Bilirubin (0.2-1.0) mg/dL AST (15-37) IU/L ALT (14-63) IU/L Alkaline Phosphatase (46-116) U/L Creatine Kinase (26-308) U/L Total Protein (6.4-8.2) g/dL Albumin (3.4-5.0) g/dL Globulin (2.6-4.0) g/dL Albumin/Globulin Ratio (0.9-1.6) Urine Color YELLOW Urine Appearance CLOUDY Urine pH 6.0 (5.0-8.0) Ur Specific [place] >= 1.030 (1.001-1.035) Urine Protein 100 H (NEGATIVE) mg/dL Urine Glucose (UA) NEGATIVE (NEGATIVE) mg/dL Urine Ketones 15 H (NEGATIVE) mg/dL Urine Occult Blood NEGATIVE (NEGATIVE) Urine Nitrite POSITIVE H (NEGATIVE) Urine Bilirubin MODERATE H (NEGATIVE) Urine Ictotest NEGATIVE Urine Urobilinogen 1.0 (<2.0) EU/dL Ur Leukocyte Esterase NEGATIVE (NEGATIVE) Urine RBC 0-2 (0-2/HPF) Urine WBC 2-4 (0-5/HPF) Ur Epithelial Cells OCCASIONAL (NONE-FEW) Urine Bacteria 1+ H (NEGATIVE) Urine Mucus MODERATE (NONE-MOD) Urine Opiates Screen NEGATIVE (NEGATIVE) Ur Oxycodone Screen NEGATIVE (NEGATIVE) Urine Methadone Screen NEGATIVE (NEGATIVE) Ur Barbiturates Screen NEGATIVE (NEGATIVE) Ur Phencyclidine Scrn NEGATIVE (NEGATIVE) Ur Amphetamine Screen NEGATIVE (NEGATIVE) U Methamphetamines Scrn NEGATIVE (NEGATIVE) U Benzodiazepines Scrn NEGATIVE (NEGATIVE) U Cocaine Metab Screen NEGATIVE (NEGATIVE) U Marijuana (THC) Screen NEGATIVE (NEGATIVE) 05/10/19 05/10/19 05/10/19 Range/Units 22:25 22:25 23:23 WBC (4.0-11.0) K/uL RBC (4.50-5.90) M/uL Hgb (13.0-17.0) g/dL Hct (38.0-50.0) % MCV (80.0-98.0) fL MCH (27.0-32.0) pg MCHC (31.0-37.0) g/dL RDW Std Deviation (28.0-62.0) fl RDW Coeff of Robin (11.0-15.0) % Plt Count (150-400) K/uL MPV (7.40-12.00) fL Neut % (Auto) (48.0-80.0) % Lymph % (Auto) (16.0-40.0) % [place] % (Auto) (0.0-15.0) % Eos % (Auto) (0.0-7.0) % Baso % (Auto) (0.0-1.5) % Neut # (Auto) (1.4-5.7) K/uL Lymph # (Auto) (0.6-2.4) K/uL [place] # (Auto) (0.0-0.8) K/uL Eos # (Auto) (0.0-0.7) K/uL Baso # (Auto) (0.0-0.1) K/uL Add Manual Diff Neutrophils % (Manual) (48.0-80.0) % Band Neutrophils % % Lymphocytes % (Manual) (16.0-40.0) % Monocytes % (Manual) (0.0-15.0) % Nucleated RBC % /100WBC Absolute Seg Neuts (1.4-5.7) Band Neutrophils # Lymphocytes # (Manual) (0.6-2.4) Monocytes # (Manual) (0.0-0.8) Nucleated RBCs # K/uL Lactate 1.6 (0.20-2.00) mmol/L Sodium 137 (136-148) mmol/L Potassium 3.6 (3.5-5.1) mmol/L Chloride 98 (98-107) mmol/L Carbon Dioxide 24.7 (21.0-32.0) mmol/L BUN 8 (7.0-18.0) mg/dL Creatinine 1.4 H (0.8-1.3) mg/dL Est Cr Clr Drug Dosing 89.64 mL/min Estimated GFR (MDRD) > 60.0 ml/min Glucose 143 H (74-106) mg/dL Calcium 8.6 (8.5-10.1) mg/dL Total Bilirubin 0.8 (0.2-1.0) mg/dL AST 11 L (15-37) IU/L ALT 22 (14-63) IU/L Alkaline Phosphatase 65 (46-116) U/L Creatine Kinase 63 (26-308) U/L Total Protein 7.3 (6.4-8.2) g/dL Albumin 3.3 L (3.4-5.0) g/dL Globulin 4.0 (2.6-4.0) g/dL Albumin/Globulin Ratio 0.8 L (0.9-1.6) Urine Color Urine Appearance Urine pH (5.0-8.0) Ur Specific [place] (1.001-1.035) Urine Protein (NEGATIVE) mg/dL Urine Glucose (UA) (NEGATIVE) mg/dL Urine Ketones (NEGATIVE) mg/dL Urine Occult Blood (NEGATIVE) Urine Nitrite (NEGATIVE) Urine Bilirubin (NEGATIVE) Urine Ictotest Urine Urobilinogen (<2.0) EU/dL Ur Leukocyte Esterase (NEGATIVE) Urine RBC (0-2/HPF) Urine WBC (0-5/HPF) Ur Epithelial Cells (NONE-FEW) Urine Bacteria (NEGATIVE) Urine Mucus (NONE-MOD) Urine Opiates Screen (NEGATIVE) Ur Oxycodone Screen (NEGATIVE) Urine Methadone Screen (NEGATIVE) Ur Barbiturates Screen (NEGATIVE) Ur Phencyclidine Scrn (NEGATIVE) Ur Amphetamine Screen (NEGATIVE) U Methamphetamines Scrn (NEGATIVE) U Benzodiazepines Scrn (NEGATIVE) U Cocaine Metab Screen (NEGATIVE) U Marijuana (THC) Screen (NEGATIVE) 05/11/19 05/11/19 05/11/19 Range/Units 06:43 06:43 06:43 WBC 15.47 H (4.0-11.0) K/uL RBC 4.40 L (4.50-5.90) M/uL Hgb 11.4 L (13.0-17.0) g/dL Hct 34.9 L (38.0-50.0) % MCV 79.3 L (80.0-98.0) fL MCH 25.9 L (27.0-32.0) pg MCHC 32.7 (31.0-37.0) g/dL RDW Std Deviation 40.2 (28.0-62.0) fl RDW Coeff of Robin 14 (11.0-15.0) % Plt Count 230 (150-400) K/uL MPV 9.10 (7.40-12.00) fL Neut % (Auto) 71.7 (48.0-80.0) % Lymph % (Auto) 23.1 (16.0-40.0) % [place] % (Auto) 3.1 (0.0-15.0) % Eos % (Auto) 2.0 (0.0-7.0) % Baso % (Auto) 0.1 (0.0-1.5) % Neut # (Auto) 11.1 H (1.4-5.7) K/uL Lymph # (Auto) 3.6 H (0.6-2.4) K/uL [place] # (Auto) 0.5 (0.0-0.8) K/uL Eos # (Auto) 0.3 (0.0-0.7) K/uL Baso # (Auto) 0.0 (0.0-0.1) K/uL Add Manual Diff Neutrophils % (Manual) (48.0-80.0) % Band Neutrophils % % Lymphocytes % (Manual) (16.0-40.0) % Monocytes % (Manual) (0.0-15.0) % Nucleated RBC % 0.0 /100WBC Absolute Seg Neuts (1.4-5.7) Band Neutrophils # Lymphocytes # (Manual) (0.6-2.4) Monocytes # (Manual) (0.0-0.8) Nucleated RBCs # 0 K/uL Lactate 1.0 (0.20-2.00) mmol/L Sodium 137 (136-148) mmol/L Potassium 4.0 (3.5-5.1) mmol/L Chloride 101 (98-107) mmol/L Carbon Dioxide 24.7 (21.0-32.0) mmol/L BUN 8 (7.0-18.0) mg/dL Creatinine 1.2 (0.8-1.3) mg/dL Est Cr Clr Drug Dosing 95.00 mL/min Estimated GFR (MDRD) > 60.0 ml/min Glucose 111 H (74-106) mg/dL Calcium 7.6 L (8.5-10.1) mg/dL Total Bilirubin 0.4 (0.2-1.0) mg/dL AST 9 L (15-37) IU/L ALT 16 (14-63) IU/L Alkaline Phosphatase 47 (46-116) U/L Creatine Kinase (26-308) U/L Total Protein 6.0 L (6.4-8.2) g/dL Albumin 2.5 L (3.4-5.0) g/dL Globulin 3.5 (2.6-4.0) g/dL Albumin/Globulin Ratio 0.7 L (0.9-1.6) Urine Color Urine Appearance Urine pH (5.0-8.0) Ur Specific [place] (1.001-1.035) Urine Protein (NEGATIVE) mg/dL Urine Glucose (UA) (NEGATIVE) mg/dL Urine Ketones (NEGATIVE) mg/dL Urine Occult Blood (NEGATIVE) Urine Nitrite (NEGATIVE) Urine Bilirubin (NEGATIVE) Urine Ictotest Urine Urobilinogen (<2.0) EU/dL Ur Leukocyte Esterase (NEGATIVE) Urine RBC (0-2/HPF) Urine WBC (0-5/HPF) Ur Epithelial Cells (NONE-FEW) Urine Bacteria (NEGATIVE) Urine Mucus (NONE-MOD) Urine Opiates Screen (NEGATIVE) Ur Oxycodone Screen (NEGATIVE) Urine Methadone Screen (NEGATIVE) Ur Barbiturates Screen (NEGATIVE) Ur Phencyclidine Scrn (NEGATIVE) Ur Amphetamine Screen (NEGATIVE) U Methamphetamines Scrn (NEGATIVE) U Benzodiazepines Scrn (NEGATIVE) U Cocaine Metab Screen (NEGATIVE) U Marijuana (THC) Screen (NEGATIVE) Result Diagrams: 05/11/19 06:43 05/11/19 06:43 Frank Results Last 24 hrs: Microbiology 05/10/19 21:12 Group A Streptococcus Rapid Screen - Final Throat NEGATIVE STREP A SCREEN REFERENCE RANGE: NEGATIVE Consult PN Assessment/Plan (1) Anemia SNOMED Code(s): 569984308 Code(s): D64.9 - ANEMIA, UNSPECIFIED Priority: High Current Visit: Yes Qualifiers: Iron deficiency anemia type: chronic blood loss (2) Dehydration SNOMED Code(s): 41450807 Code(s): E86.0 - DEHYDRATION Priority: Medium Current Visit: Yes (3) Hematemesis SNOMED Code(s): 5347637 Code(s): K92.0 - HEMATEMESIS Priority: High Current Visit: Yes Qualifiers: Nausea presence: with nausea Qualified Code(s): K92.0 - Hematemesis (4) Intractable nausea and vomiting SNOMED Code(s): 604344972 Code(s): R11.2 - NAUSEA WITH VOMITING, UNSPECIFIED Priority: High Current Visit: Yes Qualifiers: Vomiting type: unspecified Qualified Code(s): R11.2 - Nausea with vomiting , unspecified Problem List Initiated/Reviewed/Updated: Yes My Orders Last 24 Hours: My Active Orders 05/11/19 Dinner Nothing per Oral After Midnight Diet [DIET] Plan: Esophagogastroduodenoscopy with biopsy. The operative procedure, along with the risks, including, but not limited to, bleeding, perforation, and the need for surgery were discussed with the patient who voices understanding, offers no questions and wishes to proceed.
[2019-05-11] MEDS: cefTRIAXone 1 GM in Premix Bag 1 BAG IV SCH (20:30)
[2019-05-12] MEDS: Sodium Chloride 0.9% 1,000 ML IV SCH ×3 (05:40→21:15)
[2019-05-12 06:47] LABS: BLOOD UREA NITROGEN,BUN 7 mg/dL (7.0-18.0); CARBON DIOXIDE,CO2 25.2 mmol/L (21.0-32.0); CHLORIDE,CL 106 mmol/L (98-107); GLUCOSE RANDOM 98 mg/dL (74-106); POTASSIUM,K 3.6 mmol/L (3.5-5.1); SODIUM,NA 141 mmol/L (136-148)
--- NOTE | 2019-05-12 07:52 | PCM.PREANE ---
Preanesthetic Assessment - Anesthesia/Transfusion/Family Hx Anesthesia History: Prior Anesthesia Without Reaction Family History of Anesthesia Reaction: No Transfusion History: No Prior Transfusion(s) - Review of Systems General: No Symptoms Pulmonary: No Symptoms Cardiovascular: No Symptoms Neurological: No Symptoms Other: Reports: None - Physical Assessment Vital Signs: Last Vital Signs Temp 97.7 F 05/12/19 04:00 Pulse 106 H 05/12/19 04:00 Resp 16 05/12/19 04:00 BP 96/49 L 05/12/19 04:00 Pulse Ox 98 05/12/19 04:00 Height: 5 ft 8 in Weight: 95.617 kg ASA Class: 2 Mental Status: Alert & Oriented x3 Airway Class: Mallampati = 1 Dentition: Reports: Normal Dentition ROM/Head Extension: Full Lungs: Clear to Auscultation, Normal Respiratory Effort Cardiovascular: Regular Rate, Regular Rhythm - Lab Values: Laboratory Last Values WBC 10.42 K/uL (4.0-11.0) 05/12/19 05:58 RBC 4.22 M/uL (4.50-5.90) L 05/12/19 05:58 Hgb 10.9 g/dL (13.0-17.0) L 05/12/19 05:58 Hct 34.1 % (38.0-50.0) L 05/12/19 05:58 MCV 80.8 fL (80.0-98.0) 05/12/19 05:58 MCH 25.8 pg (27.0-32.0) L 05/12/19 05:58 MCHC 32.0 g/dL (31.0-37.0) 05/12/19 05:58 RDW Std Deviation 42.0 fl (28.0-62.0) 05/12/19 05:58 RDW Coeff of Robin 14 % (11.0-15.0) 05/12/19 05:58 Plt Count 241 K/uL (150-400) 05/12/19 05:58 MPV 9.40 fL (7.40-12.00) 05/12/19 05:58 Neut % (Auto) 64.9 % (48.0-80.0) 05/12/19 05:58 Lymph % (Auto) 31.1 % (16.0-40.0) 05/12/19 05:58 [place] % (Auto) 2.6 % (0.0-15.0) 05/12/19 05:58 Eos % (Auto) 1.3 % (0.0-7.0) 05/12/19 05:58 Baso % (Auto) 0.1 % (0.0-1.5) 05/12/19 05:58 Neut # (Auto) 6.8 K/uL (1.4-5.7) H 05/12/19 05:58 Lymph # (Auto) 3.2 K/uL (0.6-2.4) H 05/12/19 05:58 [place] # (Auto) 0.3 K/uL (0.0-0.8) 05/12/19 05:58 Eos # (Auto) 0.1 K/uL (0.0-0.7) 05/12/19 05:58 Baso # (Auto) 0.0 K/uL (0.0-0.1) 05/12/19 05:58 Add Manual Diff YES 05/10/19 22:25 Neutrophils % (Manual) 58 % (48.0-80.0) 05/10/19 22:25 Band Neutrophils % 20 % 05/10/19 22:25 Lymphocytes % (Manual) 21 % (16.0-40.0) 05/10/19 22:25 Monocytes % (Manual) 1 % (0.0-15.0) 05/10/19 22:25 Nucleated RBC % 0.0 /100WBC 05/12/19 05:58 Absolute Seg Neuts 15.5 (1.4-5.7) H 05/10/19 22:25 Band Neutrophils # 5.4 05/10/19 22:25 Lymphocytes # (Manual) 5.6 (0.6-2.4) H 05/10/19 22:25 Monocytes # (Manual) 0.3 (0.0-0.8) 05/10/19 22:25 Nucleated RBCs # 0 K/uL 05/12/19 05:58 Lactate 1.0 mmol/L (0.20-2.00) 05/11/19 06:43 Sodium 141 mmol/L (136-148) 05/12/19 05:58 Potassium 3.6 mmol/L (3.5-5.1) 05/12/19 05:58 Chloride 106 mmol/L (98-107) 05/12/19 05:58 Carbon Dioxide 25.2 mmol/L (21.0-32.0) 05/12/19 05:58 BUN 7 mg/dL (7.0-18.0) 05/12/19 05:58 Creatinine 1.0 mg/dL (0.8-1.3) 05/12/19 05:58 Est Cr Clr Drug Dosing 114.00 mL/min 05/12/19 05:58 Estimated GFR (MDRD) > 60.0 ml/min 05/12/19 05:58 Glucose 98 mg/dL (74-106) 05/12/19 05:58 Calcium 7.9 mg/dL (8.5-10.1) L 05/12/19 05:58 Total Bilirubin 0.2 mg/dL (0.2-1.0) 05/12/19 05:58 AST 13 IU/L (15-37) L 05/12/19 05:58 ALT 19 IU/L (14-63) 05/12/19 05:58 Alkaline Phosphatase 48 U/L (46-116) 05/12/19 05:58 Creatine Kinase 63 U/L (26-308) 05/10/19 22:25 Total Protein 6.1 g/dL (6.4-8.2) L 05/12/19 05:58 Albumin 2.4 g/dL (3.4-5.0) L 05/12/19 05:58 Globulin 3.7 g/dL (2.6-4.0) 05/12/19 05:58 Albumin/Globulin Ratio 0.7 (0.9-1.6) L 05/12/19 05:58 Urine Color YELLOW 05/10/19 22:20 Urine Appearance CLOUDY 05/10/19 22:20 Urine pH 6.0 (5.0-8.0) 05/10/19 22:20 Ur Specific [place] >= 1.030 (1.001-1.035) 05/10/19 22:20 Urine Protein 100 mg/dL (NEGATIVE) H 05/10/19 22:20 Urine Glucose (UA) NEGATIVE mg/dL (NEGATIVE) 05/10/19 22:20 Urine Ketones 15 mg/dL (NEGATIVE) H 05/10/19 22:20 Urine Occult Blood NEGATIVE (NEGATIVE) 05/10/19 22:20 Urine Nitrite POSITIVE (NEGATIVE) H 05/10/19 22:20 Urine Bilirubin MODERATE (NEGATIVE) H 05/10/19 22:20 Urine Ictotest NEGATIVE 05/10/19 22:20 Urine Urobilinogen 1.0 EU/dL (<2.0) 05/10/19 22:20 Ur Leukocyte Esterase NEGATIVE (NEGATIVE) 05/10/19 22:20 Urine RBC 0-2 (0-2/HPF) 05/10/19 22:20 Urine WBC 2-4 (0-5/HPF) 05/10/19 22:20 Ur Epithelial Cells OCCASIONAL (NONE-FEW) 05/10/19 22:20 Urine Bacteria 1+ (NEGATIVE) H 05/10/19 22:20 Urine Mucus MODERATE (NONE-MOD) 05/10/19 22:20 Urine Opiates Screen NEGATIVE (NEGATIVE) 05/10/19 22:20 Ur Oxycodone Screen NEGATIVE (NEGATIVE) 05/10/19 22:20 Urine Methadone Screen NEGATIVE (NEGATIVE) 05/10/19 22:20 Ur Barbiturates Screen NEGATIVE (NEGATIVE) 05/10/19 22:20 Ur Phencyclidine Scrn NEGATIVE (NEGATIVE) 05/10/19 22:20 Ur Amphetamine Screen NEGATIVE (NEGATIVE) 05/10/19 22:20 U Methamphetamines Scrn NEGATIVE (NEGATIVE) 05/10/19 22:20 U Benzodiazepines Scrn NEGATIVE (NEGATIVE) 05/10/19 22:20 U Cocaine Metab Screen NEGATIVE (NEGATIVE) 05/10/19 22:20 U Marijuana (THC) Screen NEGATIVE (NEGATIVE) 05/10/19 22:20 - Allergies Allergies/Adverse Reactions: Allergies Allergy/AdvReac Type Severity Reaction Status Date / Time codeine Allergy Hives Verified 05/11/19 09:02 Penicillins Allergy Hives Verified 05/11/19 09:02 - Blood Blood Available: No - Anesthesia Plan Pre-Op Medication Ordered: None - Acknowledgements Anesthesia Type Planned: General Anesthesia Pt an Appropriate Candidate for the Planned Anesthesia: Yes Alternatives and Risks of Anesthesia Discussed w Pt/Guardian: Yes Pt/Guardian Understands and Agrees with Anesthesia Plan: Yes Additional Comments: PMH: nausea and vomiting, hx of dehydration, hypocalcemia, hypoalbuminemia PLAN: tiva PreAnesthesia Questionnaire HEENT History: Reports: None Cardiovascular History: Reports: None Respiratory History: Reports: None Gastrointestinal History: Reports: Gastritis, GI Bleed Genitourinary History: Reports: None Musculoskeletal History: Reports: None Neurological History: Reports: None Psychiatric History: Reports: None Endocrine/Metabolic History: Reports: None Hematologic History: Reports: None Immunologic History: Reports: None Oncologic (Cancer) History: Reports: None - Infectious Disease History Infectious Disease History: Reports: None - Past Surgical History HEENT Surgical History: Reports: Tonsillectomy - SUBSTANCE USE Smoking Status *Q: Current Some Day Smoker Tobacco Use Within Last Twelve Months: Cigarettes Recreational Drug Use History: No - HOME MEDS Home Medications: Home Meds . [No Known Home Meds] 05/10/19 [History] - CURRENT (IN HOUSE) MEDS Current Meds: Current Medications Acetaminophen (Tylenol) 650 mg PO Q4H PRN PRN Reason: Pain/Fever Sodium Chloride (Normal Saline) 1,000 mls @ 125 mls/hr IV STAT [facility] Last Admin: 05/11/19 15:12 Dose: 125 mls/hr Ceftriaxone Sodium/Dextrose 1 (gm/ Premix) 50 mls @ 100 mls/hr IV Q24H [facility] Last Admin: 05/11/19 20:30 Dose: 100 mls/hr Sodium Chloride (Normal Saline) 1,000 mls @ 125 mls/hr IV ASDIRECTED [facility] Last Admin: 05/12/19 05:40 Dose: 125 mls/hr Pantoprazole Sodium 40 mg/ (Sodium Chloride) 10 mls @ 300 mls/hr IV Q24H [facility] [place] Last Admin: 05/11/19 10:02 Dose: 300 mls/hr Ondansetron HCl (Zofran) 4 mg IVPUSH Q4H PRN PRN Reason: Nausea/Vomiting Ondansetron HCl (Zofran Odt) 4 mg PO Q4H PRN PRN Reason: nausea, able to take PO Oxycodone HCl (Oxycodone) 5 mg PO Q4H PRN PRN Reason: Pain (moderate 4-6) Discontinued Medications Enoxaparin Sodium (Lovenox) 40 mg SUBCUT Q24H [facility] [place] Last Admin: 05/11/19 09:06 Dose: Not Given Ceftriaxone Sodium/Dextrose 1 (gm/ Premix) 50 mls @ 100 mls/hr IV ONETIME ONE Stop: 05/10/19 22:03 Last Admin: 05/10/19 22:27 Dose: 100 mls/hr Sodium Chloride (Normal Saline) 1,000 mls @ 999 mls/hr IV STAT ONE Stop: 05/10/19 22:34 Last Admin: 05/10/19 22:25 Dose: 999 mls/hr Levofloxacin/Dextrose 750 mg/ (Premix) 150 mls @ 100 mls/hr IV ONETIME ONE Stop: 05/11/19 01:10 Last Admin: 05/10/19 23:59 Dose: 100 mls/hr Ondansetron HCl (Zofran) 8 mg IVPUSH ONETIME ONE Stop: 05/10/19 21:35 Last Admin: 05/10/19 22:25 Dose: 8 mg
[2019-05-12] MEDS ORDERED: Propofol 200 MG/20 ML SDV ONE ×2 (08:41→08:42)
[2019-05-12] MEDS ORDERED: fentaNYL 100 MCG/2 ML SDV ONE (08:42)
[2019-05-12] MEDS ORDERED: Midazolam 1 MG/ML 2 ML SDV ONE (08:42)
[2019-05-12] MEDS ORDERED: Lidocaine 2% 5 ML SDV ONE (08:42)
--- NOTE | 2019-05-12 10:30 | PCM.OPNOTE ---
- General Post-Op/Procedure Note Date of Surgery/Procedure: 05/12/19 Operative Procedure(s): Esophagogastroduodenoscopy with biopsies of the stomach and distal esophagus Pre Op Diagnosis: Hematemesis with anemia Post-Op Diagnosis: Gastritis. Esophagitis with healing Aileen-Silveira tear. Anesthesia Technique: MAC (ASA II) Primary Surgeon: Oneil Feldman Condition: Stable Free Text/Narrative:: Intake & Output 05/11/19 05/12/19 05/12/19 19:59 03:59 11:59 Intake Total 886 2841 Output Total 1300 Balance 886 1541 DICTATION 803100 CPT CODE 63756
--- NOTE | 2019-05-12 10:50 | PCM.POSTAN ---
POST ANESTHESIA ASSESSMENT - MENTAL STATUS Mental Status: Alert, Oriented - VITAL SIGNS Vital Signs: Last Vital Signs Temp 98.1 F 05/12/19 08:00 Pulse 96 05/12/19 08:00 Resp 16 05/12/19 08:00 BP 96/52 L 05/12/19 08:00 Pulse Ox 98 05/12/19 08:00 - RESPIRATORY Respiratory Status: Respiratory Rate WNL, Airway Patent, O2 Saturation Stable - CARDIOVASCULAR CV Status: Pulse Rate WNL, Blood Pressure Stable - GASTROINTESTINAL GI Status: No Symptoms - PAIN Pain Score: 0 - POST OP HYDRATION Hydration Status: Adequate & Stable - OBSERVATIONS Free Text/Narrative:: Pt stable with no apparent anesthesia complications. VSS for discharge to Med/ Surg for phase II recovery.
[2019-05-12] MEDS: Pantoprazole 40 MG in Sodium Chloride 0.9% 10 ML IV SCH ×2 (11:22→21:27)
--- NOTE | 2019-05-12 12:01 | PCM.PN ---
- General Info Date of Service: 05/12/19 Admission Dx/Problem (Free Text): Admission Diagnosis/Problem Admission Diagnosis/Problem Nausea, vomiting, hematemesis, anemia Subjective Update: patient seen and examined at bedside,s/p EGD, no acute distress. Functional Status: Reports: Pain Controlled - Review of Systems General: Reports: No Symptoms HEENT: Reports: No Symptoms Pulmonary: Reports: No Symptoms Cardiovascular: Reports: No Symptoms Gastrointestinal: Reports: Decreased Appetite Genitourinary: Reports: No Symptoms Musculoskeletal: Reports: No Symptoms Neurological: Reports: No Symptoms - Patient Data Vitals - Most Recent: Last Vital Signs Temp 36.8 C 05/12/19 11:00 Pulse 91 05/12/19 11:00 Resp 16 05/12/19 11:00 BP 91/50 L 05/12/19 11:00 Pulse Ox 96 05/12/19 11:00 Weight - Most Recent: 210 lb 12.8 oz I&O - Last 24 Hours: Intake & Output 05/11/19 05/12/19 05/12/19 22:59 06:59 14:59 Intake Total 886 2841 900 Output Total 1300 Balance 886 1541 900 Lab Results Last 24 Hours: Laboratory Results - last 24 hr 05/12/19 05/12/19 Range/Units 05:58 05:58 WBC 10.42 (4.0-11.0) K/uL RBC 4.22 L (4.50-5.90) M/uL Hgb 10.9 L (13.0-17.0) g/dL Hct 34.1 L (38.0-50.0) % MCV 80.8 (80.0-98.0) fL MCH 25.8 L (27.0-32.0) pg MCHC 32.0 (31.0-37.0) g/dL RDW Std Deviation 42.0 (28.0-62.0) fl RDW Coeff of Robin 14 (11.0-15.0) % Plt Count 241 (150-400) K/uL MPV 9.40 (7.40-12.00) fL Neut % (Auto) 64.9 (48.0-80.0) % Lymph % (Auto) 31.1 (16.0-40.0) % Harper % (Auto) 2.6 (0.0-15.0) % Eos % (Auto) 1.3 (0.0-7.0) % Baso % (Auto) 0.1 (0.0-1.5) % Neut # (Auto) 6.8 H (1.4-5.7) K/uL Lymph # (Auto) 3.2 H (0.6-2.4) K/uL Harper # (Auto) 0.3 (0.0-0.8) K/uL Eos # (Auto) 0.1 (0.0-0.7) K/uL Baso # (Auto) 0.0 (0.0-0.1) K/uL Nucleated RBC % 0.0 /100WBC Nucleated RBCs # 0 K/uL Sodium 141 (136-148) mmol/L Potassium 3.6 (3.5-5.1) mmol/L Chloride 106 (98-107) mmol/L Carbon Dioxide 25.2 (21.0-32.0) mmol/L BUN 7 (7.0-18.0) mg/dL Creatinine 1.0 (0.8-1.3) mg/dL Est Cr Clr Drug Dosing 114.00 mL/min Estimated GFR (MDRD) > 60.0 ml/min Glucose 98 (74-106) mg/dL Calcium 7.9 L (8.5-10.1) mg/dL Total Bilirubin 0.2 (0.2-1.0) mg/dL AST 13 L (15-37) IU/L ALT 19 (14-63) IU/L Alkaline Phosphatase 48 (46-116) U/L Total Protein 6.1 L (6.4-8.2) g/dL Albumin 2.4 L (3.4-5.0) g/dL Globulin 3.7 (2.6-4.0) g/dL Albumin/Globulin Ratio 0.7 L (0.9-1.6) Frank Results Last 24 Hours: Microbiology 05/10/19 21:12 Quick Strep Confirmation Culture - Final Throat NO GROUP A STREP ISOLATED REFERENCE RANGE: NEGATIVE Group A Streptococcus Rapid Screen - Final NEGATIVE STREP A SCREEN REFERENCE RANGE: NEGATIVE 05/10/19 22:20 Urine Culture - Final Urine, Clean Catch MIXED JAMES 1,000-10,000 CFU/ML 05/10/19 23:35 Aerobic Blood Culture - Preliminary Blood - Venous - Lab Draw NO GROWTH AFTER 1 DAY Anaerobic Blood Culture - Preliminary NO GROWTH AFTER 1 DAY 05/10/19 23:23 Aerobic Blood Culture - Preliminary Blood - Venous NO GROWTH AFTER 1 DAY Anaerobic Blood Culture - Preliminary NO GROWTH AFTER 1 DAY Med Orders - Current: Current Medications Acetaminophen (Tylenol) 650 mg PO Q4H PRN PRN Reason: Pain/Fever Sodium Chloride (Normal Saline) 1,000 mls @ 125 mls/hr IV STAT [facility] Last Admin: 05/12/19 11:22 Dose: 125 mls/hr Ceftriaxone Sodium/Dextrose 1 (gm/ Premix) 50 mls @ 100 mls/hr IV Q24H [facility] Last Admin: 05/11/19 20:30 Dose: 100 mls/hr Sodium Chloride (Normal Saline) 1,000 mls @ 125 mls/hr IV ASDIRECTED [facility] Last Admin: 05/12/19 05:40 Dose: 125 mls/hr Pantoprazole Sodium 40 mg/ (Sodium Chloride) 10 mls @ 300 mls/hr IV BID [facility] Ondansetron HCl (Zofran) 4 mg IVPUSH Q4H PRN PRN Reason: Nausea/Vomiting Ondansetron HCl (Zofran Odt) 4 mg PO Q4H PRN PRN Reason: nausea, able to take PO Oxycodone HCl (Oxycodone) 5 mg PO Q4H PRN PRN Reason: Pain (moderate 4-6) Sucralfate (Carafate) 1 gm PO QIDACANDBED [facility] Discontinued Medications Enoxaparin Sodium (Lovenox) 40 mg SUBCUT Q24H [facility] Last Admin: 05/11/19 09:06 Dose: Not Given Fentanyl (Sublimaze) Confirm Administered Dose 100 mcg .ROUTE .STK-MED ONE Stop: 05/12/19 08:43 Ceftriaxone Sodium/Dextrose 1 (gm/ Premix) 50 mls @ 100 mls/hr IV ONETIME ONE Stop: 05/10/19 22:03 Last Admin: 05/10/19 22:27 Dose: 100 mls/hr Sodium Chloride (Normal Saline) 1,000 mls @ 999 mls/hr IV STAT ONE Stop: 05/10/19 22:34 Last Admin: 05/10/19 22:25 Dose: 999 mls/hr Levofloxacin/Dextrose 750 mg/ (Premix) 150 mls @ 100 mls/hr IV ONETIME ONE Stop: 05/11/19 01:10 Last Admin: 05/10/19 23:59 Dose: 100 mls/hr Pantoprazole Sodium 40 mg/ (Sodium Chloride) 10 mls @ 300 mls/hr IV Q24H [facility] Last Admin: 05/12/19 11:22 Dose: 300 mls/hr Lidocaine (Xylocaine-Mpf 2%) Confirm Administered Dose 5 ml .ROUTE .STK-MED ONE Stop: 05/12/19 08:43 Midazolam HCl (Versed 1 Mg/Ml) Confirm Administered Dose 2 mg .ROUTE .STK-MED ONE Stop: 05/12/19 08:43 Ondansetron HCl (Zofran) 8 mg IVPUSH ONETIME ONE Stop: 05/10/19 21:35 Last Admin: 05/10/19 22:25 Dose: 8 mg Propofol (Diprivan 20 Ml) Confirm Administered Dose 200 mg .ROUTE .STK-MED ONE Stop: 05/12/19 08:42 Propofol (Diprivan 20 Ml) Confirm Administered Dose 200 mg .ROUTE .STK-MED ONE Stop: 05/12/19 08:43 - Exam Quality Assessment: Supplemental Oxygen General: Alert, Oriented, Cooperative Neck: Supple, Trachea Midline Lungs: Clear to Auscultation, Normal Respiratory Effort Cardiovascular: Regular Rate, Regular Rhythm, No Murmurs GI/Abdominal Exam: Normal Bowel Sounds, Soft, Non-Tender Extremities: Normal Inspection, No Pedal Edema Peripheral Pulses: 3+: Posterior Tibial (L), Posterior Tibial (R) Psy/Mental Status: Alert, Normal Affect - Problem List & Annotations (1) Anemia SNOMED Code(s): 165241110 Code(s): D64.9 - ANEMIA, UNSPECIFIED Status: Acute Priority: High Qualifiers: Iron deficiency anemia type: chronic blood loss (2) Hematemesis SNOMED Code(s): 0423259 Code(s): K92.0 - HEMATEMESIS Status: Acute Priority: High Qualifiers: Nausea presence: with nausea Qualified Code(s): K92.0 - Hematemesis (3) Intractable nausea and vomiting SNOMED Code(s): 413856703 Code(s): R11.2 - NAUSEA WITH VOMITING, UNSPECIFIED Status: Acute Priority : High (4) Aileen-Silveira tear SNOMED Code(s): 870979894 Code(s): K22.6 - GASTRO-ESOPHAGEAL LACERATION-HEMORRHAGE SYNDROME Status: Acute Priority: High (5) UTI (urinary tract infection) SNOMED Code(s): 34996915 Code(s): N39.0 - URINARY TRACT INFECTION, SITE NOT SPECIFIED Status: Acute (6) Rash and nonspecific skin eruption SNOMED Code(s): 630715640 Code(s): R21 - RASH AND OTHER NONSPECIFIC SKIN ERUPTION Status: Acute (7) History of esophagogastroduodenoscopy (EGD) SNOMED Code(s): 224730048, 041180767 Code(s): Z98.890 - OTHER SPECIFIED POSTPROCEDURAL STATES Status: Acute - Problem List Review Problem List Initiated/Reviewed/Updated: Yes - Plan Plan:: 1) Intractable N/V 2) Hematemesis 3) Anemia 4) s/p EGD Patient came in with Intractable N?V likley leading to Aileen-silveira tear will f/u on EGD report Start clear liquids, advnace diet as tolerated cont IV PPI for now cont to monitor vitals 4) UTI: cont IV antibiotics for now f/u on urine culture Ambulate as tolerated Possible d/c stephanie 5) Lower ext rash: h/o itchy rash which seems to be healing now, per history possible scabies vs insect bites contact precaution for now .
[2019-05-12] MEDS ORDERED: Sodium Chloride 0.9% 1,000 ML IV ONE (12:36)
[2019-05-12] MEDS: Sucralfate Suspension 1 GM/10 ML Cup PO SCH ×3 (13:04→21:22)
[2019-05-12] MEDS: cefTRIAXone 1 GM in Premix Bag 1 BAG IV SCH (21:30)
[2019-05-13] MEDS: Sodium Chloride 0.9% 1,000 ML IV SCH (05:00)
[2019-05-13 06:40] LABS: BLOOD UREA NITROGEN,BUN 5 mg/dL (7.0-18.0); CARBON DIOXIDE,CO2 26.9 mmol/L (21.0-32.0); CHLORIDE,CL 111 mmol/L (98-107); GLUCOSE RANDOM 104 mg/dL (74-106); POTASSIUM,K 3.9 mmol/L (3.5-5.1); SODIUM,NA 145 mmol/L (136-148)
[2019-05-13] MEDS: Sucralfate Suspension 1 GM/10 ML Cup PO SCH (06:57)
[2019-05-13] MEDS: Pantoprazole 40 MG in Sodium Chloride 0.9% 10 ML IV SCH (08:47)
[2019-05-13] MEDS ORDERED: Sodium Chloride 0.9% 1,000 ML IV ONE (08:51)
--- NOTE | 2019-05-13 10:22 | OR ---
SURGEON: Oneil Feldman M.D. DATE OF PROCEDURE: 05/12/2019 OPERATION PERFORMED: Esophagogastroduodenoscopy with gastric and esophageal biopsies. PRIMARY SURGEON: Oneil Feldman MD. ANESTHESIA: MAC. ASA CLASSIFICATION: II. PREOPERATIVE DIAGNOSIS: Hematemesis with anemia. POSTOPERATIVE DIAGNOSES: 1. Mild gastritis. 2. Esophagitis with healing, suggestive of a Aileen-Silveira tear. DESCRIPTION OF PROCEDURE: The patient was taken to the endoscopy room and positioned on the endoscopy table in the supine position. Time-out was called for appropriate identification of the patient and procedure. Monitored anesthesia care was provided. The bite block was placed between the patient's teeth. The gastroscope was inserted through the bite block and advanced without difficulty through the esophagus and stomach into the duodenum, where examination was carried out in a retrograde fashion. The duodenum shows no acute inflammatory changes or ulcerations. The stomach does show mild chronic gastritis. Antral biopsies were obtained to look for the presence of Helicobacter pylori. The gastroscope was retroflexed to visualize the proximal stomach. No acute ulcerations were noted. The gastroscope was then slowly withdrawn. The patient does have a small hiatal hernia. As the scope was withdrawn through the GE junction, there was evidence of an acute esophagitis and what appears to be a healing Aileen-Silveira tear. Separate biopsies of the distal esophagus were obtained. The mid and proximal esophagus demonstrated good contractility. No other lesions were identified. The vocal cords were visualized as the scope was withdrawn and noted to move symmetrically. The gastroscope was then removed with the patient having tolerated the procedure well. He was taken to recovery room in stable condition. GISELLE / JESSENIA /[id number]
--- NOTE | 2019-05-13 10:37 | PCM.DCSUM1 ---
Discharge Summary - Hospital Course Free Text/Narrative:: The patient is a 18-year-old gentleman who had presented to the emergency department complaining of fever, Nausea, coffee ground emesis. The patient had been vomiting and retching multiple times and c/o generalized abdominal pain. Denied any alcohol use or NSAID use. The patient had been evaluated at a clinic in [place] for his rash and had been treated for possible scabies. The patient denied any melena or dark stools. The patient was also noted to have positive nitrites in his urine with +1 bacteria. Patient was started on IV antibiotics for possible UTI and on IV PPPI for GI bleeding. Patients BP was on softer side was patient was resuscitated with IV fluids aggressively. Patient had EGD which showed Esophagitis with healing Mellory -silveira tear. Patients Hb was stable and didnt need any transfusions. Post EGD patient tolerated diet well and was stable for dc on PPI and Keflex. Patient has to f/u with PCP and GI on Outpatient basis. Patient doesnt have insurance so arrangements were made to help with obtaining proper follow up referrals for patient. Diagnosis: Stroke: No Modified Dipti Scale: No Symptoms at All Modified Dipti Scale Score: 0 - Discharge Data Discharge Date: 06/11/19 Discharge Disposition: Home, Self-Care 01 Condition: Stable - Referral to Home Health Primary Care Physician: PCP None - Discharge Diagnosis/Problem(s) (1) Intractable nausea and vomiting SNOMED Code(s): 356452774 ICD Code: R11.2 - NAUSEA WITH VOMITING, UNSPECIFIED Status: Acute Priority: High (2) Hematemesis SNOMED Code(s): 7233870 ICD Code: K92.0 - HEMATEMESIS Status: Acute Priority: High Qualifiers: Nausea presence: with nausea Qualified Code(s): K92.0 - Hematemesis (3) Aileen-Silveira tear SNOMED Code(s): 529601015 ICD Code: K22.6 - GASTRO-ESOPHAGEAL LACERATION-HEMORRHAGE SYNDROME Status: Acute Priority: High (4) UTI (urinary tract infection) SNOMED Code(s): 09070556 ICD Code: N39.0 - URINARY TRACT INFECTION, SITE NOT SPECIFIED Status: Acute (5) Rash and nonspecific skin eruption SNOMED Code(s): 378993502 ICD Code: R21 - RASH AND OTHER NONSPECIFIC SKIN ERUPTION Status: Acute (6) Anemia SNOMED Code(s): 139676859 ICD Code: D64.9 - ANEMIA, UNSPECIFIED Status: Acute Priority: High Qualifiers: Iron deficiency anemia type: chronic blood loss - Patient Summary/Data Operative Procedure(s) Performed: Esophagogastroduodenoscopy with biopsies of the stomach and distal esophagus Consults: Consultations 05/11/19 09:36 Consult to Physician [CONS] Urgent - Patient Instructions Diet: Regular Diet as Tolerated - Discharge Plan *PRESCRIPTION DRUG MONITORING PROGRAM REVIEWED*: Not Applicable *COPY OF PRESCRIPTION DRUG MONITORING REPORT IN PATIENT PAULINA: Not Applicable Prescriptions/Med Rec: cephALEXin [Keflex] 500 mg PO Q12H #5 cap Ondansetron [Zofran ODT] 4 mg PO Q6H PRN #10 tab.dis PRN Reason: nausea, able to take PO Pantoprazole Sodium [Protonix] 40 mg PO ACBREAKFAST #30 tablet. Sucralfate [Carafate] 1 gm PO QIDACANDBED #30 cup Home Medications: Home Meds Ondansetron [Zofran ODT] 4 mg PO Q6H PRN #10 tab.dis 05/13/19 [Rx] Pantoprazole Sodium [Protonix] 40 mg PO ACBREAKFAST #30 tablet. 05/13/19 [Rx] Sucralfate [Carafate] 1 gm PO QIDACANDBED #30 cup 05/13/19 [Rx] cephALEXin [Keflex] 500 mg PO Q12H #5 cap 05/13/19 [Rx] Patient Handouts: Esophagogastroduodenoscopy, Ondansetron tablets, Sucralfate tablets, Cephalexin tablets or capsules, Pantoprazole tablets, Acute Urinary Retention, Male, [id number] Referrals: [facility] [Outside] Thelma Tapia MD [Ordering Only Provider] - 05/26/19 2:00 pm Loulou Concepcion MD [Resident] - 05/22/19 1:00 pm - Discharge Summary/Plan Comment DC Time >30 min.: Yes Discharge Summary/Plan Comment: The patient is a 18-year-old gentleman who had presented to the emergency department complaining of fever, Nausea, coffee ground emesis. The patient had been vomiting and retching multiple times and c/o generalized abdominal pain. Denied any alcohol use or NSAID use. The patient had been evaluated at a clinic in [place] for his rash and had been treated for possible scabies. The patient denied any melena or dark stools. The patient was also noted to have positive nitrites in his urine with +1 bacteria. Patient was started on IV antibiotics for possible UTI and on IV PPI for GI bleeding. Patients BP was on softer side was patient was resuscitated with IV fluids aggressively. Patient had EGD which showed Esophagitis with healing Mellory-silveira tear. Patients Hb was stable and didnt need any transfusions. Post EGD patient tolerated diet well and was stable for dc on PPI and Keflex. Patient has to f/i with PCP and GI on Outpatient basis - General Info Date of Service: 05/12/19 Admission Dx/Problem (Free Text: Admission Diagnosis/Problem Admission Diagnosis/Problem Nausea, vomiting, hematemesis, anemia Subjective Update: patient seen and examined at bedside,s/p EGD, no acute distress. - Review of Systems General: Reports: No Symptoms HEENT: Reports: No Symptoms Pulmonary: Reports: No Symptoms Cardiovascular: Reports: No Symptoms Gastrointestinal: Reports: No Symptoms, Nausea. Denies: Abdominal Pain, Constipation, Decreased Appetite, Hematochezia, Melena, Vomiting Musculoskeletal: Denies: Neck Pain, Shoulder Pain Skin: Denies: Cyanosis, Jaundice Neurological: Denies: Confusion, Dizziness, Headache - Patient Data Vitals - Most Recent: Last Vital Signs Temp 36.9 C 05/13/19 10:15 Pulse 105 H 05/13/19 10:15 Resp 16 05/13/19 10:15 BP 127/89 05/13/19 10:15 Pulse Ox 100 05/13/19 10:15 Orthostatic Blood Pressure [ 107/64 Standing] Orthostatic Blood Pressure [ 109/62 Sitting] Orthostatic Blood Pressure [ 104/54 Supine] Weight - Most Recent: 210 lb 12.8 oz I&O - Last 24 hours: Intake & Output 05/12/19 05/13/19 05/13/19 22:59 06:59 14:59 Intake Total 3408 2938 1000 Output Total 2200 2400 Balance 2026 073 1408 Lab Results - Last 24 hrs: Laboratory Results - last 24 hr 05/13/19 05/13/19 05/13/19 Range/Units 06:05 06:05 06:05 WBC 5.62 (4.0-11.0) K/uL RBC 4.01 L (4.50-5.90) M/uL Hgb 10.3 L (13.0-17.0) g/dL Hct 32.5 L (38.0-50.0) % MCV 81.0 (80.0-98.0) fL MCH 25.7 L (27.0-32.0) pg MCHC 31.7 (31.0-37.0) g/dL RDW Std Deviation 42.2 (28.0-62.0) fl RDW Coeff of Robin 14 (11.0-15.0) % Plt Count 233 (150-400) K/uL MPV 9.20 (7.40-12.00) fL Neut % (Auto) 49.8 (48.0-80.0) % Lymph % (Auto) 42.0 H (16.0-40.0) % Rabun % (Auto) 4.6 (0.0-15.0) % Eos % (Auto) 3.4 (0.0-7.0) % Baso % (Auto) 0.2 (0.0-1.5) % Neut # (Auto) 2.8 (1.4-5.7) K/uL Lymph # (Auto) 2.4 (0.6-2.4) K/uL Rabun # (Auto) 0.3 (0.0-0.8) K/uL Eos # (Auto) 0.2 (0.0-0.7) K/uL Baso # (Auto) 0.0 (0.0-0.1) K/uL Nucleated RBC % 0.0 /100WBC Nucleated RBCs # 0 K/uL Sodium 145 (136-148) mmol/L Potassium 3.9 (3.5-5.1) mmol/L Chloride 111 H (98-107) mmol/L Carbon Dioxide 26.9 (21.0-32.0) mmol/L BUN 5 L (7.0-18.0) mg/dL Creatinine 0.9 (0.8-1.3) mg/dL Est Cr Clr Drug Dosing 126.67 mL/min Estimated GFR (MDRD) > 60.0 ml/min Glucose 104 (74-106) mg/dL Calcium 8.5 (8.5-10.1) mg/dL Phosphorus 4.0 (2.6-4.7) mg/dL Magnesium 2.3 (1.8-2.4) mg/dL TSH 3rd Generation 2.62 (0.36-3.74) uIU/mL JESSICA Results - Last 24 hrs: Microbiology 05/10/19 23:35 Aerobic Blood Culture - Preliminary Blood - Venous - Lab Draw NO GROWTH AFTER 2 DAYS Anaerobic Blood Culture - Preliminary NO GROWTH AFTER 2 DAYS 05/10/19 23:23 Aerobic Blood Culture - Preliminary Blood - Venous NO GROWTH AFTER 2 DAYS Anaerobic Blood Culture - Preliminary NO GROWTH AFTER 2 DAYS 05/10/19 21:12 Quick Strep Confirmation Culture - Final Throat NO GROUP A STREP ISOLATED REFERENCE RANGE: NEGATIVE Group A Streptococcus Rapid Screen - Final NEGATIVE STREP A SCREEN REFERENCE RANGE: NEGATIVE 05/10/19 22:20 Urine Culture - Final Urine, Clean Catch MIXED JAMES 1,000-10,000 CFU/ML Med Orders - Current: Current Medications Acetaminophen (Tylenol) 650 mg PO Q4H PRN PRN Reason: Pain/Fever Ceftriaxone Sodium/Dextrose 1 (gm/ Premix) 50 mls @ 100 mls/hr IV Q24H [facility] Last Admin: 05/12/19 21:30 Dose: 100 mls/hr Sodium Chloride (Normal Saline) 1,000 mls @ 125 mls/hr IV ASDIRECTED [facility] Last Admin: 05/13/19 05:00 Dose: 125 mls/hr Pantoprazole Sodium 40 mg/ (Sodium Chloride) 10 mls @ 300 mls/hr IV BID [facility] Last Admin: 05/13/19 08:47 Dose: 300 mls/hr Ondansetron HCl (Zofran) 4 mg IVPUSH Q4H PRN PRN Reason: Nausea/Vomiting Ondansetron HCl (Zofran Odt) 4 mg PO Q4H PRN PRN Reason: nausea, able to take PO Oxycodone HCl (Oxycodone) 5 mg PO Q4H PRN PRN Reason: Pain (moderate 4-6) Sucralfate (Carafate) 1 gm PO QIDACANDBED [facility] Last Admin: 05/13/19 06:57 Dose: 1 gm Discontinued Medications Enoxaparin Sodium (Lovenox) 40 mg SUBCUT Q24H [facility] Last Admin: 05/11/19 09:06 Dose: Not Given Fentanyl (Sublimaze) Confirm Administered Dose 100 mcg .ROUTE .STK-MED ONE Stop: 05/12/19 08:43 Ceftriaxone Sodium/Dextrose 1 (gm/ Premix) 50 mls @ 100 mls/hr IV ONETIME ONE Stop: 05/10/19 22:03 Last Admin: 05/10/19 22:27 Dose: 100 mls/hr Sodium Chloride (Normal Saline) 1,000 mls @ 999 mls/hr IV STAT ONE Stop: 05/10/19 22:34 Last Admin: 05/10/19 22:25 Dose: 999 mls/hr Sodium Chloride (Normal Saline) 1,000 mls @ 125 mls/hr IV STAT [facility] Last Admin: 05/12/19 11:22 Dose: 125 mls/hr Levofloxacin/Dextrose 750 mg/ (Premix) 150 mls @ 100 mls/hr IV ONETIME ONE Stop: 05/11/19 01:10 Last Admin: 05/10/19 23:59 Dose: 100 mls/hr Pantoprazole Sodium 40 mg/ (Sodium Chloride) 10 mls @ 300 mls/hr IV Q24H [facility] Last Admin: 05/12/19 11:22 Dose: 300 mls/hr Sodium Chloride (Normal Saline) 1,000 mls @ 999 mls/hr IV .[facility] ONE Stop: 05/12/19 13:36 Last Admin: 05/12/19 13:09 Dose: 999 mls/hr Sodium Chloride (Normal Saline) 1,000 mls @ 999 mls/hr IV .[facility] ONE Stop: 05/13/19 09:51 Last Admin: 05/13/19 09:04 Dose: 999 mls/hr Lidocaine (Xylocaine-Mpf 2%) Confirm Administered Dose 5 ml .ROUTE .STK-MED ONE Stop: 05/12/19 08:43 Midazolam HCl (Versed 1 Mg/Ml) Confirm Administered Dose 2 mg .ROUTE .STK-MED ONE Stop: 05/12/19 08:43 Ondansetron HCl (Zofran) 8 mg IVPUSH ONETIME ONE Stop: 05/10/19 21:35 Last Admin: 05/10/19 22:25 Dose: 8 mg Propofol (Diprivan 20 Ml) Confirm Administered Dose 200 mg .ROUTE .STK-MED ONE Stop: 05/12/19 08:42 Propofol (Diprivan 20 Ml) Confirm Administered Dose 200 mg .ROUTE .STK-MED ONE Stop: 05/12/19 08:43 - Exam General: Reports: Alert, Oriented HEENT: Reports: Pupils Equal, Pupils Reactive, EOMI, Mucous Membr. Moist/[place]ck: Reports: Supple Lungs: Reports: Clear to Auscultation, Normal Respiratory Effort Cardiovascular: Reports: Regular Rate, Regular Rhythm GI/Abdominal Exam: Normal Bowel Sounds, Soft, Non-Tender, No Organomegaly, No Distention, No Abnormal Bruit, No Mass, Pelvis Stable Discharge Operative/Procedures - Procedures Performed Operations: EGD
== END 2019-05-13 11:10 | disposition home or self-care (01) ==
LOC: MW.ED 20:45 → MW.MS 23:48
PROVIDERS: ADMIT Internal Medicine; ATTEND Internal Medicine
DX: N39.0 Urinary tract infection, site not specified (principal); K22.6 Gastro-esophageal laceration-hemorrhage syndrome; K25.4 Chronic or unspecified gastric ulcer with hemorrhage; K20.9 Esophagitis, unspecified; E86.0 Dehydration; R00.0 Tachycardia, unspecified; K29.50 Unspecified chronic gastritis without bleeding; F17.210 Nicotine dependence, cigarettes, uncomplicated; Z88.5 Allergy status to narcotic agent; Z88.0 Allergy status to penicillin
CPT/HCPCS: 36415; 43239; 80048; 80053; 80305; 81001; 82550; 83605; 83735; 84100; 84443; 85025; 87040; 87081; 87086; 87880; 93005; 96361; 96365; 96366; 96367; 96375; 96376; 99285; A9270; C9113; G0378; J0696; J1956; J2001; J2250; J2405; J2704; J3010; J7040; J7050; 00731; 88305; 88312